=== PATIENT | female | born 1985 | race Caucasian/White ===

== ENCOUNTER 2017-05-23 20:20 | Emergency (ER) | payer OTHER ==
[2017-05-23 20:34] VITALS: TEMP 98.1
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
[2017-05-23 22:40] VITALS: BP 127/77; PULSE 70; RESP 18; O2SAT 94
== END 2017-05-23 22:39 | disposition home or self-care (01) ==
DX: S82.001A Unspecified fracture of right patella, initial encounter for closed fracture (principal); V13.4XXA Pedal cycle driver injured in collision with car, pick-up truck or van in traffic accident, initial encounter; Y99.8 Other external cause status; Y93.55 Activity, bike riding
CPT/HCPCS: L1830